=== PATIENT | female | born 1950 | race American Indian/Alaskan Native ===

== ENCOUNTER 2017-10-21 08:41 | Day surgery (SDC) | payer OTHER ==
[~2017-10-21] VITALS: Ht 152.4 cm; Wt 61.3 kg
[~2017-10-21 08:41] MED LIST: AMLO5 PO; ASPI81EC PO; CIME400 PO; DESI25 PO; FOLI1 PO; LIOT5 PO; TRAZ50 PO; ZIPR20 PO
[2017-10-21] MEDS ORDERED: TOPI25 (09:22)
[2017-10-21] MEDS ORDERED: METO50ER (09:24)
[2017-10-21] MEDS ORDERED: TOPI50 (09:24)
== END 2017-10-21 11:15 | disposition home or self-care (01) ==
LOC: ORSCSDS 08:41
PROVIDERS: Internal Medicine Gastroenterology
PROC: 0DBM8ZX Excision of Descending Colon, Via Natural or Artificial Opening Endoscopic, Diagnostic (ICD-10-PCS; principal; 2017-10-21 10:00)
PROC: 0DBE8ZX Excision of Large Intestine, Via Natural or Artificial Opening Endoscopic, Diagnostic (ICD-10-PCS; principal; 2017-10-21 10:00)
PROC: 0DBH8ZX Excision of Cecum, Via Natural or Artificial Opening Endoscopic, Diagnostic (ICD-10-PCS; principal; 2017-10-21 10:00)
DX: R19.7 Diarrhea, unspecified (principal); D12.0 Benign neoplasm of cecum; D12.4 Benign neoplasm of descending colon; Z86.73 Personal history of transient ischemic attack (TIA), and cerebral infarction without residual deficits; E78.5 Hyperlipidemia, unspecified; F41.9 Anxiety disorder, unspecified; F20.9 Schizophrenia, unspecified; I10 Essential (primary) hypertension; Z79.899 Other long term (current) drug therapy
CPT/HCPCS: J7120

== ENCOUNTER → 2020-07-06 | Outpatient (CLI) | payer OTHER ==
[~2020-07-06] MED LIST changes: +METO50ER; +TOPI25; +TOPI50
== END ==
LOC: LAB 14:48 → LAB SHORT 14:48
DX: R21 Rash and other nonspecific skin eruption (principal)
CPT/HCPCS: 88312